=== PATIENT | male | born 1935 | race Caucasian/White ===

== ENCOUNTER 2019-09-27 03:01 | Inpatient (IN) | payer OTHER ==
[~2019-09-27] VITALS: Ht 177.8 cm; Wt 106.7 kg
[2019-09-27] VITALS (35 sets, daily range): BP systolic 93–197; BP diastolic 50–91
[~2019-09-27 03:01] MED LIST: ACETAMINOPHEN325 M1 PO; ALLOPURINOL 10100 M1 PO; ASPIRIN81 M2 PO; AZOR 5-40 MG T1 EACH PO; CALCITRIOL0.25 MCG PO; CARDIZEM CD240 MG PO; COLACE 100 MG100 MG PO; COZAAR 25 MG TA25 M1 PO; DILTIAZEM 24HR240 MG PO; ELIQUIS5 MG PO; FISH OIL 1,001000 M2 PO; FISH OIL 1,2001 EAC4 PO; ICAPS AREDS FO1 EACH PO; LORTAB 7.5/5001 TA3 PO; MULTAQ400 MG PO; NITROSTAT0.4 MG SUBLING; OCUVITE TABLET1 EAC1 PO; SIMVASTATIN40 MG PO; SOTALOL 120 MG120 M1 PO; SYNTHROID125 MCG PO; TOPROL XL50 MG PO; TUMS X-STR300 MG PO; VITAMIN D-32000 UNIT PO; VITAMIN D3400 UNIT PO; XARELTO20 MG PO
[2019-09-27 03:46] LABS: HEMATOCRIT 41.9 % (42.0-52.0); HEMOGLOBIN 14.2 gm/dL (14.0-18.0); MCH 32.1 pg (26.0-34.0); MCHC 33.8 g/dL (28.0-37.0); MCV 94.9 fL (80.0-100.0); PLATELET COUNT 247 thou/uL (150-400); RBC 4.41 mil/uL (4.50-6.00); WBC 6.1 thou/uL (4.0-11.0)
[2019-09-27 03:48] LABS: CALCIUM 9.2 mg/dL (8.5-10.1); CREATININE 1.2 mg/dL (0.7-1.3); POTASSIUM 4.2 mmol/L (3.5-5.1)
[2019-09-27 05:13] LABS: ABSOLUTE NEUTROPHILS 3.5 thou/uL (1.4-8.2); NUCLEATED RBCS 1 /100WBC; PLATELET ESTIMATE NORMAL
[2019-09-27 09:27] LABS: TSH 17.533 uIU/mL (0.358-3.740)
--- NOTE | 2019-09-27 13:49 | EKG ---
[facility] [place] [address] ELECTROCARDIOGRAM REPORT Name: JUSTEN STEINER Room #: 249-P ADM IN M.R.#: [id number] Admission: 09/27/19 Attend Phys: Luis Enrique Beasley MD Discharge: Date of : 37 Report #: [id number] THIS REPORT FOR: cc: Rene Kiser Theodore M. DO Couchonnal,Doroteo Cali MD ~ THIS REPORT FOR: //name// [facility] ED Test Date: 2019-09-27 Test Time: 03:21:08 Pat Name: JUSTEN STEINER Department: Room: 249 Gender: M Ham Passer: : 1935 Requested By: Osvaldo Rider Order Number: [id number] MD: Doroteo Walsh Measurements Intervals [place] Rate: 50 P: -2 NC: 171 QRS: -48 QRSD: 101 T: 36 QT: 473 QTc: 432 Interpretive Statements Sinus rhythm Left anterior fascicular block Abnormal R-wave progression, late transition Compared to ECG 08/12/2012 11:52:09 Electronically Signed On 09-27-2019 13:49:31 CDT by Doroteo Walsh [email or web address] <ELECTRONICALLY SIGNED> By: Doroteo Walsh MD 09/27/19 1349 0321 0321 Doroteo Walsh MD /EPI
[2019-09-28] VITALS (26 sets, daily range): BP systolic 93–158; BP diastolic 51–74
[2019-09-28 05:18] LABS: HEMATOCRIT 41.9 % (42.0-52.0); HEMOGLOBIN 14.2 gm/dL (14.0-18.0); MCH 32.2 pg (26.0-34.0); MCHC 33.9 g/dL (28.0-37.0); MCV 95.1 fL (80.0-100.0); RBC 4.4 mil/uL (4.50-6.00); RDW 14.5 % (10.5-14.5); WBC 7.3 thou/uL (4.0-11.0)
[2019-09-28 05:42] LABS: ALBUMIN 3.4 g/dL (3.4-5.0); CALCIUM 8.9 mg/dL (8.5-10.1); CREATININE 1.2 mg/dL (0.7-1.3); PHOSPHORUS 2.3 mg/dL (2.5-4.9); POTASSIUM 4.1 mmol/L (3.5-5.1)
[2019-09-28 12:30] LABS: PROTIME 10.2 Seconds (9.3-11.4)
== END 2019-09-28 16:03 | disposition short-term general hospital (02) | DRG 513 ==
LOC: ER 03:01 → ICU 05:04 → EROBS 05:04 → ICU 11:06
PROVIDERS: Emergency Medicine; Nurse Practitioner; Nurse Practitioner Family; Surgery; ADMIT Surgery; ATTEND Surgery
PROC: 2W3KX1Z Immobilization of Left Finger using Splint (ICD-10-PCS; principal; 2019-09-27)
PROC: 0RSX0ZZ Reposition Left Finger Phalangeal Joint, Open Approach (ICD-10-PCS; principal; 2019-09-27)
DX: S63.285A Dislocation of proximal interphalangeal joint of left ring finger, initial encounter (principal); G93.6 Cerebral edema; S06.309A Unspecified focal traumatic brain injury with loss of consciousness of unspecified duration, initial encounter; M87.9 Osteonecrosis, unspecified; G93.9 Disorder of brain, unspecified; E03.9 Hypothyroidism, unspecified; I16.0 Hypertensive urgency; G47.33 Obstructive sleep apnea (adult) (pediatric); R93.89 Abnormal findings on diagnostic imaging of other specified body structures; J45.909 Unspecified asthma, uncomplicated; I10 Essential (primary) hypertension; E78.5 Hyperlipidemia, unspecified; I48.91 Unspecified atrial fibrillation; W10.8XXA Fall (on) (from) other stairs and steps, initial encounter; Y93.89 Activity, other specified; Y92.89 Other specified places as the place of occurrence of the external cause; Y99.8 Other external cause status; Z87.891 Personal history of nicotine dependence; Z98.49 Cataract extraction status, unspecified eye; Z79.899 Other long term (current) drug therapy
CPT/HCPCS: 10078

== ENCOUNTER 2019-10-06 09:15 | Inpatient (IN) | payer OTHER ==
[~2019-10-06] VITALS: Ht 175.3 cm; Wt 108.4 kg
[2019-10-06] MEDS ORDERED: KEPPRA 500 MG500 MG PO (15:25)
[2019-10-06] MEDS ORDERED: ROBAXIN 750 MG750 MG PO (15:27)
[2019-10-06] MEDS ORDERED: MIRALAX17 GM PO (15:30)
[2019-10-06] MEDS ORDERED: PERCOCET 5-3251 EACH PO (15:30)
[2019-10-06] MEDS ORDERED: SENOKOT-S1 TA2 PO (15:33)
[2019-10-06] MEDS ORDERED: ALLOPURINOL 10100 M3 PO (15:36)
[2019-10-06] MEDS ORDERED: LIPITOR 20 MG T20 M1 PO (15:37)
[2019-10-06] MEDS ORDERED: VITAMIN D310 MC2 PO (15:40)
[2019-10-06] MEDS ORDERED: DILTIAZEM 24HR240 M1 PO (15:41)
[2019-10-06] MEDS ORDERED: FINASTERIDE5 MG PO (15:41)
[2019-10-06] MEDS ORDERED: FISH OIL 1,0001 EAC9 PO (15:42)
[2019-10-06] MEDS ORDERED: LEVO-T100 MCG PO (15:49)
[2019-10-06] MEDS ORDERED: COZAAR 25 MG TA25 M1 PO (15:50)
[2019-10-06] MEDS ORDERED: FLOMAX0.4 MG PO (15:51)
[2019-10-06] MEDS ORDERED: PRESERVISION A1 EACH PO (15:53)
[2019-10-06] MEDS ORDERED: HEPARIN 1,1000 UNIT/ SUBQ (15:54)
[2019-10-06 22:00] VITALS: BP 175/96
--- NOTE | 2019-10-07 03:11 | NUR ---
pt arrived to unit before change of shift. pt sitting in dining room eating his supper waiting for his room to be finished cleaning by housekeeping. transferred pt to w/c and into bed. pt alert and oriented x3-4, hard of hearing. pt cooperative. pt took hs meds with water tolerating well. pt incontinent of large amt urine. pt appears to be sleeping soundly with hourly rounding checks. bed alarm on and call light in reach. will continue to monitor.
[2019-10-07 05:45] LABS: HEMATOCRIT 33.9 % (42.0-52.0); HEMOGLOBIN 11.7 gm/dL (14.0-18.0); MCH 32.9 pg (26.0-34.0); MCHC 34.4 g/dL (28.0-37.0); MCV 95.6 fL (80.0-100.0); RBC 3.55 mil/uL (4.50-6.00); RDW 13.9 % (10.5-14.5); WBC 6.8 thou/uL (4.0-11.0)
[2019-10-07 06:12] LABS: CALCIUM 9.1 mg/dL (8.5-10.1); CREATININE 1.2 mg/dL (0.7-1.3); POTASSIUM 4.4 mmol/L (3.5-5.1); URIC ACID* 4.9 mg/dL (3.5-7.2)
[2019-10-07 06:29] LABS: CHOLESTEROL 102 mg/dL (<200); HDL CHOLESTEROL 42 mg/dL (>40); LDL CHOLESTEROL 44 mg/dL (<100); TC:HDL 2.4 Ratio (Not establshd); TRIGLYCERIDE 84 mg/dL (<150); VLDL 17 mg/dL (<40)
[2019-10-07 06:30] LABS: SERUM ASSESSMENT Clear
[2019-10-07 07:58] VITALS: BP 144/78
--- NOTE | 2019-10-07 09:33 | NUR ---
ASSUMED CARE AT 0700. PATIENT IS ALERT AND ORIENTED X3. PATIENT HAS RIGHT SIDE OF HEAD YAZMIN THAT ARE INTACT. PATIENT HAS LEFT SIDED WEAKNESS. PATIENT IS UP WITH ASSIST OF 1 STAFF WITH GAIT BELT TO [facility]. UP IN BED FOR BREAKFAST. FALL AND SAFETY PROTOCOLS IN PLACE. DENIES PAIN AT THIS TIME. WILL CONTINUE TO MONITER.
[2019-10-07 19:35] VITALS: BP 140/74
--- NOTE | 2019-10-08 02:33 | NUR ---
ASKED FOR HELP TO VOID AT 2129, APPARENTLY TOO LATE, INCONTINENT URINE CLEANED, MOISTURE BARRIER APPLIED TO RASHY RED BUTTOCK. VOIDED 400 CC WITH URINAL AND STAFF ASSIST AT 0. PATIENT PLEASANT AND COOPERATIVE AND ABLE TO COMMUNICATE EVEN AFTER REMOVING HIS HEARING AIDS. PAIN MED FOR HEADACHE APPRECIATED
--- NOTE | 2019-10-08 06:02 | NUR ---
STANDING AT EDGE OF BED USING URINAL FOR 300 CC WITH STANDBY ASSIST
--- NOTE | 2019-10-08 08:19 | HC ---
[facility] [place] [address] CONSULTATION Name: JUSTEN STEINER Room #: 506-1 ADM IN M.R.#: [id number] Admission: 10/06/19 Attend Phys: Nick Stock MD Discharge: Date of : 37 Report #: [id number] THIS REPORT FOR: cc: Rene Kiser,Ian Palacios MD ~ CC: Nick Kiser DATE OF SERVICE: 10/07/2019 CARDIOLOGY CONSULTATION INDICATION: History of paroxysmal atrial fibrillation. HISTORY OF PRESENT ILLNESS: This is an 84-year-old gentleman with a history of paroxysmal atrial fibrillation, nonobstructive CAD, hypertension and hypercholesterolemia, who is transferred from [facility] for inpatient rehabilitation. Recently, he sustained a fall and found to have a mass in his right hemisphere. He underwent a right parietal craniotomy for glioblastoma on 09/29 at [facility]. His postop course was uncomplicated. We are asked to follow up regarding his history of paroxysmal atrial fibrillation and coronary artery disease. He denies any chest pains or shortness of breath. PAST MEDICAL HISTORY: CAD with nonobstructive disease. History of atrial flutter ablation in 2014. More recently with paroxysmal atrial fibrillation, maintained on Cardizem and anticoagulation therapy. History of hypertension, hypercholesterolemia, and sleep apnea. ALLERGIES: None. MEDICATIONS: Cardiac medications include Cardizem 240 daily, losartan, simvastatin. SOCIAL HISTORY: Negative for tobacco use. FAMILY HISTORY: Noncontributory. REVIEW OF SYSTEMS: The pertinent positives and negatives described in the HPI. PHYSICAL EXAMINATION: VITAL SIGNS: Blood pressure is 144/78, heart rate is 60 beats per minute. GENERAL APPEARANCE: This is an elderly appearing male, in no acute distress. HEENT: Normocephalic, atraumatic, oral mucosa moist. NECK: Supple. LUNGS: Clear to auscultation. [facility] [address] [place] [address] CONSULTATION Name: JUSTEN STEINER Room #: 506-1 ADM IN [facility].#: [id number] Admission: 10/06/19 Attend Phys: Nick Stock MD Discharge: Date of : 37 Report #: [id number] CARDIAC: Regular rate and rhythm. S1, S2 positive. ABDOMEN: Soft, nontender. EXTREMITIES: Trace edema, no cyanosis. LABORATORY VALUES: Hemoglobin is 11.7. Sodium is 137, creatinine is 1.2. ASSESSMENT AND PLAN: 1. Glioblastoma, status post right parietal craniotomy, continue with PT and OT. Supportive care. 2. Coronary artery disease/nonobstructive, stable with no complaints of angina or dyspnea. 3. Paroxysmal atrial fibrillation, continue on Cardizem. Presently on heparin. Resume anticoagulation when able to. 4. Hypercholesterolemia, continue statin therapy. <ELECTRONICALLY SIGNED> By: Ian Olivas MD 10/08/19 0819 1042 Ivan Olivas MD /santy
[2019-10-08 10:05] VITALS: BP 109/69
--- NOTE | 2019-10-08 11:38 | NUR ---
ASSUMED CARE AT 0700. PATIENT IS ALERT AND ORIENTED X3. PATIENT MUSTAFA'S, FILM PROCESSOR ARE EQUAL. LUNGS ARE CLEAR AND DEMINISHED. ABD IS SOFT WITH BSX4. VOIDING DOREEN COLORED URINE. PATIENTS BOTTOM IS RED FROM URINE INCONTINENCE. DR. LLOYD HERE. PATIENT IS TO BE TURNED Q2 HOURS AND BARRIER CREAM APPLIED. PATIENT IS TO BE KEPT CLEAN AND DRY. FALL AND SAFETY PROTOCOLS IN PLACE. C/O PAIN IN HIS BOTTOM. TURNED AND BARRIER CREAM APPLIED. UP WITH ASSIST OF 1 STAFF AND GAIT BELT AND WALKER. HEAD SUTURES ARE DRY AND INTACT. WILL CONTINUE TO MONITER.
[2019-10-08 21:50] VITALS: BP 133/96
--- NOTE | 2019-10-09 00:34 | NUR ---
PT ALERT AND ORIENTED X 3. SITS ON SIDE OF BED TO USE URINAL. INCONT OF URINE AT TIMES. INCISION TO HEAD C/D/I WITH SUTURES. BED ALARM ON FOR SAFETY. PT APPEARS TO BE SLEEPING ON HOURLY ROUNDS.
--- NOTE | 2019-10-09 08:21 | EKG ---
[facility] [place] [address] ELECTROCARDIOGRAM REPORT Name: JUSTEN STEINER Room #: [facility]- ADM IN M.R.#: [id number] Admission: 10/06/19 Attend Phys: Nick Stock MD Discharge: Date of : 37 Report #: [id number] THIS REPORT FOR: cc: Rene Kiser Theodore M. DO Lundgren, Craig H. MD [facility] ~ THIS REPORT FOR: //name// [facility] Test Date: 2019-10-07 Test Time: 12:48:40 Pat Name: JUSTEN STEINER Department: Room: [facility] Gender: M Balancing Machine Operator: Maksim PETER : 1935 Requested By: Ian Olivas Order Number: [id number] MD: Jaylen Pete Measurements Intervals [place] Rate: 47 P: 12 SD: 170 QRS: -41 QRSD: 100 T: 57 QT: 444 QTc: 393 Interpretive Statements Sinus bradycardia Left anterior fascicular block Compared to ECG 09/27/2019 03:21:08 No significant change was found Electronically Signed On 10-09-2019 8:21:30 CDT by Jaylen Pete [email or web address] <ELECTRONICALLY SIGNED> By: Jaylen Pete MD, [facility] 10/09/19 0821 1248 1248 Jaylen Pete MD, [facility] /EPI
--- NOTE | 2019-10-09 13:10 | NUR ---
chart review. cm cont to wear own face mask and face shield during visit at bedside. intro to cm, weekly team meeting and dcp ie home health. pt preferrs going by susan, he is able to make his needs know. he is [place] with bilat hearing aids in. noted stable in head open to air " 37 of those. live home with , and daughter lives with us, she is a pharmacist at [employer]. 1 step into home, 12 step with handrail to basement. independent prior to hospital and prior to ku. no equip, manage own medication. drive vehicle. 6 kids all live 1 mile from us if we need anything"/susan. will cont following as needed for dc needs.
--- NOTE | 2019-10-09 13:13 | NUR ---
Nutrition: RD received consult per rehab admission orders. Pt admit S/P craniotomy with tumor resection of right parietal mass/glioblastoma. Good oral [id number]% meals carb control diet. BG is controlled and SSI order has D/C'ed. A1C pending. PMH: HLD, DM2, HTN, NARDA. On vitamin D supplementation for deficiency. Recent weight of 193# error. Prior weights 244-247# and pt reports no recent changes. Explained meal ordering if desired. pt voices no questions for RD at present. Consider low nutrition risk at this time.
[2019-10-09 13:33] VITALS: BP 126/51
--- NOTE | 2019-10-09 18:59 | NUR ---
PT A&OX4. PT HAD NO C/O PAIN OR ISSUES TODAY. TOLERATED PT/OT WELL.
[2019-10-09 20:15] VITALS: BP 159/78
--- NOTE | 2019-10-10 03:55 | NUR ---
USING URINAL ONCE STANDING AT BEDSIDE, TWICE WHILE IN BED, AFTER INITIALY BEING INCONTINENT IN BRIEF. DECLINED SENNA DUE TO RECENT BM. TURNING SELF TO RIGHT SIDE AT THIS TIME.
[2019-10-10 11:50] VITALS: BP 129/62
--- NOTE | 2019-10-10 13:05 | NUR ---
team recommendation: he has follow up neuro ku on at 1130. family will need training for car transfer to take him to follow up appointment. dc with [facility]h pt, ot, st, nurse. he will needs assist with bills and pills. 24hr assistance and supervision at home. no driving and follow up outp kana 6 week post dc [phone].
--- NOTE | 2019-10-10 15:25 | NUR ---
ASSUMED CARE AT 0700 THIS MORNING. PT. A&OX4. HE IS A BIT FORGETFUL AND SAXMAN. HE HAS SOME LEFT ARM WEAKNESS. HE IS UP WITH ASSIST OF 1. HE HAS BEEN PLEASANT AND COOPERATIVE WITH ALL STAFF. HE TOOK HIS MEDICATIONS WITHOUT PROBLEMS NOTED.
[2019-10-10 20:00] VITALS: BP 123/68
--- NOTE | 2019-10-11 01:39 | NUR ---
PT ALERT AND ORIENTED X 4. PT PLATINUM, WEARS BILATERAL HEARING AIDS. SPEAK LOUDLY TO PT AND SOMETIMES WRITE THINGS DOWN IF HAVING TOO MUCH DIFFICULTY UNDERSTANDING CONVERSATION. HEAD INCISION C/D/I WITH SUTURES. PT C/O HEADACHE AT START OF SHIFT. TYLENOL GIVEN ORDERED. MELATONIN ALSO GIVEN AT HS PER PT REQUEST FOR SLEEP. PT INCONT OF URINE IN LARGE AMTS. BUTTOCKS RED, BARRIER CREAM APPLIED PRN. BED ALARM ON FOR SAFETY. PT APPEARS TO BE SLEEPING ON HOURLY ROUNDS.
[2019-10-11 08:00] VITALS: BP 114/65
--- NOTE | 2019-10-11 10:57 | NUR ---
ASSUMED CARE AT 0700. PATIENT IS ALERT AND ORIENTED X4. PATIENT IS VERY [place] AND USES BILATERAL HEARING AIDS. WHEN COMMUNICATING WITH PATIENT THIS PROPOSAL DEVELOPMENT MANAGER HAS TO SPEAK LOUDER TO HELP PATIENT UNDERSTAND WHAT IS BEING SAID. LUNGS ARE CLEAR AND DEMINISHED. ABD IS SOFT WITH BSX4. PATIENT HAD BM THIS A.M. PATIENT IS VOIDING ABMER COLORED URINE PER URINAL AND UP TO THE BATHROOM OR BSC. FALL AND SAFETY PROTOCOLS IN PLACE. DENIES PAIN AT THIS TIME. CONTINUES TO PROGRESS TOWARDS D/C GOALS. WILL CONTINUE TO MONITER.
[2019-10-11 20:00] VITALS: BP 137/75
--- NOTE | 2019-10-12 02:04 | NUR ---
PATIENT HAS BEEN CALM AND COOPERATIVE THIS EVENING. PATIENT HAD A HEADACHE AT BEGINNING SHIFT AND RECEIVED TYLENOL 650MG PO WITH RELIEF. PATIENT TAKES HIS MEDS WHOLE WITH WATER. PATIENT HAS 2 HEARING AIDS AND IS STILL BLACKFEET. PATIENT IS TO D/C TO HOME ON THURSDAY 10/12. PATIENT HAS RASH ON BUTTOCKS AND ANTIFUNGAL CREAM APPLIED TO AREA PRN. PATIENT USES URINAL TO VOID. HEPARIN 5000U ADMINISTERED TO RIGHT UPPER ABDOMEN. PATIENT IS EAGER TO START ELIQUIS SO HE DOESN'T HAVE TO HAVE THE INJECTIONS AGAIN. PATIENT TOOK MEDS WHOLE WITH WATER. PATIENT IS UP WITH ASSIST X 1 TO [facility]. PATIENT APPEARS TO BE SLEEPING AT THIS TIME. BED IN LOW POSTION AND BED ALARM ON. CONTINUING TO MONITOR.
--- NOTE | 2019-10-12 06:09 | NUR ---
PATIENT HAS SLEPT OFF AND ON AND WATCHED TV THRU NIGHT. HE DENIES PAIN THIS MORNING. HE IS A/0 X 3. HE DID ASK WHAT THE DATE AND DAY IS TODAY. HIS SUTURES AT MIDLINE OF POSTERIOR HEAD INTACT WITHOUT SIGNS OF INFECTION. NO DRAINAGE. PATIENT VOIDED PER URINAL AND EMPTIED SOME THIS MORNING OF 400CC. PATIENT PLEASANT AND COOPERATIVE. PATIENT HOPING TO SWITCH TO ELIQUIS FROM HEPARIN PARVEEN. HE STATES HE'S TIRED OF INJECTIONS. CONTINUING TO MONITOR.
[2019-10-12 08:10] VITALS: BP 121/64
--- NOTE | 2019-10-12 10:51 | NUR ---
ASSUMED CARE AT 0700. PATIENT IS ALERT AND ORIENTED X 4 BUT IS VERY [place]. PATIENT MUSTAFA. DEPUTY SHERIFF CUSTODY ARE EQUAL. LUNGS ARE CLEAR AND DEMINISHED. ABD IS SOFT WITH BSX4. UP TO THE BATHROOM TO VOID AND HAVE BM TODAY. UP IN THE W/C FOR MEALS. PATIENT BOTTOM RED. ANTIFUNGAL APPLIED. BREWERY REPRESENTATIVE NOTIFIED. PLAN FOR SCRIPT FOR NYSTATIN POWDER BID. FALL AND SAFETY PROTOCOLS IN PLACE. DENIES PAIN AT THIS TIME. CONTINUES TO PROGRESS TOWARDS D/C GOALS. WILL CONTINUE TO MONITER.
--- NOTE | 2019-10-12 16:25 | NUR ---
PATIENT YAZMIN IN HIS HEAD ARE DRY AND INTACT. NO DRAINAGE NOTED. WILL CONTINUE TO MONITER.
[2019-10-12 18:39] LABS: GLYCOHEMOGLOBIN (HGB A1C) 5.8
[2019-10-12 22:18] VITALS: BP 118/64
--- NOTE | 2019-10-13 01:57 | NUR ---
NYSTATIN POWDER TO BUTTOCKS, TURNED TO SIDE, USING URINAL WITH MINIMAL ASSIST APPROX 200 CC AT A TIME. NO HEADACHE TONIGHT, HARD OF HEARING SINCE AIDS REMOVED
[2019-10-13 05:05] LABS: BASOPHILS 0.9 % (0.0-2.0); EOSINOPHILS 1.8 % (0.0-3.0); HEMATOCRIT 30.2 % (42.0-52.0); HEMOGLOBIN 10.8 gm/dL (14.0-18.0); LYMPHOCYTES 24.3 % (24.0-44.0); MCH 34.4 pg (26.0-34.0); MCHC 35.8 g/dL (28.0-37.0); MCV 96.2 fL (80.0-100.0); PLATELET COUNT 288 thou/uL (150-400); RBC 3.14 mil/uL (4.50-6.00); WBC 4.9 thou/uL (4.0-11.0)
[2019-10-13 05:35] LABS: CALCIUM 9.5 mg/dL (8.5-10.1); CREATININE 1.3 mg/dL (0.7-1.3); MAGNESIUM 2.1 mg/dL (1.8-2.4); POTASSIUM 4.3 mmol/L (3.5-5.1)
[2019-10-13 08:05] VITALS: BP 116/71
--- NOTE | 2019-10-13 14:49 | NUR ---
ASSUMED CARES AT 0700. PT ALERT AND ORIENTED*4 BUT FORGETFUL. IMPULSIVE. VITALS REMAIN STABLE. PT C/O COUGH, STATED THAT WHENEVER HE COUGHS HE GETS A HEADACHE AROUND THE INCISION. INCISION REMAINS DRY AND INTACT, YAZMIN IN PLACE. CONTINUES TO HAVE REDNESS ON HIS SACRAL AREA, NYSTATIN POWDER APPLIED SCHEDULED. PT PARTICIPATED WELL IN ALL THE THERAPIES. Q1H VISUAL CHECKS. CALL LIGHT WITHIN REACH. FALL PRECAUTIONS IN PLACE
--- NOTE | 2019-10-13 15:34 | NUR ---
edwin up at [facility] nursing station and gillian from called and wanted to know if medicare was going to pay for his follow up appointment on and new oncology at on . cm let her know did not have answer for that, she would have to check with on that. " ok thank you"/gillian.
[2019-10-14 00:06] LABS: GLYCOHEMOGLOBIN (HGB A1C) 5.6 % (4.8-5.6)
--- NOTE | 2019-10-14 01:07 | NUR ---
TURNING SELF TO SIDE AND ABLE TO USE URINAL WITHOUT ASSIST TONIGHT. NYSTATIN POWDER TO PINK AREA ON BUTTOCKS. PLANNING ON VISITING DOCTOR ON THE
[2019-10-14 07:45] VITALS: BP 109/54
--- NOTE | 2019-10-14 13:28 | NUR ---
ASSUMED CARES AT 0700. PT ORIENTED*3, UNABLE TO RECALL DATE/DAY/TIME. PT ASKED STAFF THIS MORNING IF TODAY WAS WEDNESDAY AND THOUGHT THAT BREAKFAST WAS DINNER. DENIES PAIN AT THIS TIME. VITALS REMAIN STABLE. PT IMPULSIVE *1, STANDING ON THE SIDE OF BED TO USE THE URINAL. UP WITH 1 MIN ASSIST, GB AND WALKER. SACRAL AREA CLEANED AND NYSTATIN POWDER APPLIED. PT UP WITH 1 MIN ASSIST, GB AND WALKER. Q1H VISUAL CHECKS. CALL LIGHT WITHIN REACH. FALL PRECAUTIONS IN PLACE
[2019-10-14 19:40] VITALS: BP 111/54
--- NOTE | 2019-10-15 01:20 | NUR ---
PT ALERT AND ORIENTED X 4. STANDS AT SIDE OF BED TO USE URINAL WITH ASSIST X 1. HEAD INCISION C/D/I WITH SUTURES. PT DENIES PAIN OR DISCOMFORT. BED ALARM ON FOR SAFETY. PT APPEARS TO BE SLEEPING ON HOURLY ROUNDS.
[2019-10-15 07:10] VITALS: BP 139/82
--- NOTE | 2019-10-15 13:47 | NUR ---
ASSUMED CARES AT 0700. PT ORIENTED TO PERSON AND PLACE, FORGETFUL AND CONFUSED AT TIMES. C/O HEADACHE. PAIN MEDICATION ADMINISTERED NEEDED. SACRAL AREA CLEANED AND NYSTATIN POWDER APPLIED PER ORDER. PT UP WITH 1 SBA, GB AND WALKER AND TOLERATED WELL. Q1H VISUAL CHECKS. CALL LIGHT WITHIN REACH. FALL PRECAUTIONS IN PLACE
[2019-10-15 19:40] VITALS: BP 123/79
--- NOTE | 2019-10-15 21:11 | HC ---
[facility] [place] [address] CONSULTATION Name: JUSTEN STEINER Room #: 506-1 ADM IN M.R.#: [id number] Admission: 10/06/19 Attend Phys: Nick Stock MD Discharge: Date of : 37 Report #: [id number] THIS REPORT FOR: cc: Rene Kiser,Gene Benjamin PhD ~ CC: Nick Kiser DATE OF SERVICE: 10/14/2019 NEUROBEHAVIORAL STATUS EXAM ATTENDING PHYSICIAN: Nick Stock M.D. RELAY CHECKER: Gene Chase, Ph.D. CLINICAL PRESENTATION: The patient is an 84-year-old male admitted to the rehabilitation unit for a comprehensive inpatient treatment program. He was transferred from the [facility]. The patient was originally at [facility] on 09/27/19 after having a fall and found to have a mass in his right hemisphere and was transferred to [facility] where he underwent a right parietal craniotomy for glioblastoma on 09/30/2019. His diagnostic assessment on the rehab unit is glioblastoma, status post right parietal craniotomy, left-sided hemisensory deficit with some left visual deficits, functional mobility and ADL deficits with cognitive concerns, prior history of bradycardia, thought to be Valsalva related while at , hypertension, hypothyroidism, gout, diabetes mellitus type 2, obstructive sleep apnea, hyperlipidemia and atrial fibrillation. A complete description of his medical condition, history and medication can be found in his medical record. Neuropsychological consultation was requested to provide assistance in the assessment of cognitive and emotional status and provide recommendations and services. Prior to this most recent admission, the patient was living with his and daughter in their home. He has 6 children and 6 grandchildren. The patient is a college graduate. 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 The patient does not report a prior history of treatment for depression or anxiety. However, he does indicate a high level of alcohol use at approximately 6 beers a day. TECHNIQUES UTILIZED: Clinical interview, review of medical records, staff consultation and behavioral observation, mini mental status exam 2 standard version, clock drawing and brief verbal fluency assessment. [address] [address] CONSULTATION Name: JUSTEN STEINER Room #: 506-1 ADM IN M.R.#: [id number] Admission: 10/06/19 Attend Phys: Nick Stock MD Discharge: Date of : 37 Report #: [id number] EXAMINATION FINDINGS: The patient was alert and cooperative with the assessment. He described having a fall down his stairs as the reason for his hospitalization. The patient does not present with an aphasia or report auditory or visual hallucinations, anxiety or decreased appetite. He describes symptoms to include difficulty with memory, sleep disturbance, and feelings of depression. Additionally, prior to his hospitalization, he reported that he would run into things on his left side. Performance on the MMSE 2 brief version is extremely low with a raw score of 11/16. He was 3/3 for initial registration, 3/5 for orientation to time, 5/[address] and 0/3 for immediate recall of 3 items after a brief time delay and distraction. Performance on the MMSE 2 standard version improved to a raw score of 24/30, which is a T score of 36 and percentile rank of 8. He was 5/5 for serial 7's, 2/2 for naming, 1/1 for repetition, 3/3 for auditory comprehension. He could read and follow single command and write a sentence. The patient was unable to copy a simple geometric design. He also was unable to draw a clock and set the hands at designated time. Severe deficits in visual spatial construction are noted and likely related to the right parietal craniotomy and glioblastoma. Visual spatial disorganization will likely interfere with his ability to manage independent tasks. Brief assessment of letter fluency was average at the 54th percentile and category fluency at the 21st percentile. Average letter fluency and category fluency suggest fairly well maintained verbal fluency with greater deficits in visual spatial construction and organization. Possible alcohol use disorder is suggested. 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 Depressive Disorder RECOMMENDATIONS: The patient will need to discontinue driving and will require assistance in the management of medication, finances and nutrition. Visual spatial disorganization and deficits in perceptual reasoning will require environmental support. Followup neuropsych assessment may be of benefit to clarify the severity of cognitive disorder. At this time, assistance will be needed for medication and finances along with safety concerns regarding possible impulsivity. Further [facility] [address] [place] [address] CONSULTATION Name: JUSTEN STEINER Room #: 506-1 ADM IN M.R.#: [id number] Admission: 10/06/19 Attend Phys: Nick Stock MD Discharge: Date of : 39 Report #: [id number] assment of possible alcohol use disorder is indicated. Thank you very much for allowing me to provide the consultation on this patient. <ELECTRONICALLY SIGNED> By: Gene Chase, PhD 10/15/19 2111 1538 1610 Gene Chase, PhD /nt
--- NOTE | 2019-10-15 23:50 | NUR ---
ASSUMED PT CARE AT 1900. PT IS ORIENTED X3, BUT QUITE FORGETFUL. VERY [place] WHICH MAKES IT DIFFICULT TO ASSESS TRUE ORIENTATION STATUS. USING URINAL, WELL EPISODE OF INCONTINENCE BEFORE BED. PM MEDS GIVEN, PT REQUESTING A SLEEP AID. UPSET THAT HE STILL HAD TO HAVE HEPARIN INJECTION. SUTURES ON HEAD D/C/I. A LITTLE FUSSY WITH STAFF TONIGHT. ANXIOUS TO GOT TO APPT IN AM. WILL CONTINUE TO MONITOR THORUGHOUT THE SHIFT.
[2019-10-16 09:00] VITALS: BP 127/85
--- NOTE | 2019-10-16 11:03 | H ---
[facility] [place] [address] HISTORY AND PHYSICAL Name: JUSTEN STEINER Room #: 506-1 ADM IN M.R.#: [id number] Admission: 10/06/19 Attend Phys: Nick Stock MD Discharge: Date of : 37 Report #: [id number] THIS REPORT FOR: cc: Rene Kiser,Rene Cantu,Nick Lara MD ~ CC: Nick Kiser DATE OF SERVICE: 10/06/2019 HISTORY AND PHYSICAL AND POST-ADMISSION PHYSICIAN EVALUATION HISTORY OF PRESENT ILLNESS: The patient is an 84-year-old male who was admitted to the inpatient rehabilitation unit at [facility] from [facility]. He originally was seen here at [facility] on 09/27/2019 after sustaining a fall and was found to have a mass in his right hemisphere and was transferred to [facility] on 09/28/2019 where he then underwent a subsequent right parietal craniotomy for glioblastoma on 09/30/2019. He did not have any complications postoperatively. He had one episode when he had some bradycardia, but was thought to be vasovagal induced with a bowel movement. He has left-sided weakness and left hemisensory deficits and has now been readmitted to [facility] at this time to the acute inpatient rehab arias. PAST MEDICAL HISTORY: Prior medical history includes gout, obstructive sleep apnea, pseudophakia of the right eye, atrial fibrillation, hyperlipidemia, hypothyroidism, hypertension, diabetes mellitus type 2, cataracts, bradycardia, and macular degeneration. MEDICATIONS: Please see the full medication listing. ALLERGIES: No known drug allergies. SOCIAL HISTORY: The patient lives in a house with and daughter. is retired. Daughter works. There are 2-3 steps in and then there is 1 to 2 flights inside the home. Apparently, there are 2-3 stairs to the walk-in basement. The bedroom and bathroom are on the basement level with a walk-in shower. He has begun using the quad cane over the past month. REVIEW OF SYSTEMS: No current complaints of chest pain, shortness of breath or abdominal discomfort. PHYSICAL EXAMINATION: GENERAL: The patient was examined on 10/06/2019. He was alert, pleasant, sitting up at the dining room table. VITAL SIGNS: Temperature 38.1, pulse was 115, respirations 16, blood pressure [facility] [address] [place] [address] HISTORY AND PHYSICAL Name: JUSTEN STEINER Room #: 506-1 [facility] IN .R.#: [id number] Admission: 10/06/19 Attend Phys: Nick Stock MD Discharge: Date of : 37 Report #: [id number] 144/79. He was alert, pleasant. HEENT: Reveals the incision over his mid scalp with the alexander in place. He has an abrasion to his forehead. HEENT: Otherwise appeared benign. CHEST: Sounded clear to auscultation. CARDIOVASCULAR: Regular rate and rhythm. ABDOMEN: Bowel sounds positive, nontender. GENITOURINARY AND RECTAL: Deferred. NEUROLOGIC: EOMs appeared to be full. No nystagmus. I detect some decreased left lower quadrantanopia. Sensory examination was somewhat difficult to assess as he has a hard time attending but appears to be decreased left hemisensory. He also has some decreased coordination and decreased spontaneous use of that upper and lower extremity. Strength is probably a grade 4-/5. No obvious focal weakness of the right upper or right lower extremity. He is needing assistance as far as basic functional mobility skills and has been mod assist coming to stand. ASSESSMENT: An 84-year-old white male with the following problem list: 1. Glioblastoma, status post right parietal craniotomy, 09/30/2019. 2. Left-sided hemisensory deficits with some apparent left visual deficits. 3. Functional mobility, ADL deficits with cognitive concerns. 4. 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 5. Hypertension. 6. Hypothyroidism. 7. Gout. 8. Diabetes mellitus type 2. 9. Obstructive sleep apnea. 10. Hyperlipidemia. 11. Atrial fibrillation. PLAN: The patient has been admitted for acute in-hospital inpatient rehabilitation. From a postadmission physician evaluation, there are no relevant changes since the preadmission screening. Please see the above review of prior and current medical and functional conditions and comorbidities. Please see the patient's previous and current functional status. As far as risk of complications, he has multiple medical comorbidities as noted above. Initial plan of care involves the interdisciplinary acute inpatient rehabilitation program. Measurable functional goals would be for him to become modified independent with transfers, mobility, ADLs improve as far as cognition, so that he can hopefully return back to his prior living situation. Prognosis is reasonably good with estimated length of stay probably at least 10-14 days and likely longer in order to reach the functional level he will need to safely [facility] [address] [place] [address] HISTORY AND PHYSICAL Name: JUSTEN STEINER Room #: 506-1 ADM IN M.R.#: [id number] Admission: 10/06/19 Attend Phys: Nick Stock MD Discharge: Date of : 37 Report #: [id number] return back home. Potential barriers would include his multiple medical comorbidities and decreased functional status. <ELECTRONICALLY SIGNED> By: Nick Stock MD 10/16/19 1103 [id number] 1150 Nick Stock MD /nt
--- NOTE | 2019-10-16 11:51 | NUR ---
Nutrition followup: pt continues on rehab unit S/P tumor resection of right parietal mass/glioblastoma. Unable to s/w pt, off unit for a dr appt at . Intake records show pt continues to eat very well, 100% of meals. Labs/meds reviewed. BG well controlled. 10/14 BM. Some weight variations-follow trends.
--- NOTE | 2019-10-16 18:06 | NUR ---
PT ASSESSED AT START OF SHIFT. WENT TO SEE NEUROSURGEON THIS AM W/ TRANSPORTING. SCALP SUTURES REMOVED AT VISIT. PLAN FOR CT SCAN OUT-PT ON 10/19 AND THEN SURGEON WILL DECIDE ABOUT RESTARTING ELEQUIS. PT DOING WELL W/ THERAPIES. EATING AND DRINKING. CONTNENT OF B&B.
[2019-10-16 20:49] VITALS: BP 121/73
--- NOTE | 2019-10-17 03:38 | NUR ---
ASSUMED PT CARE AT 1900.PT OBSERVED LYING ON HIS BED WATCHING TV AT SHIFT CHANGE.PT METLAKATLA.WOUND ON HIS HEAD C/D/I DOOR TO DOOR SELLING DISTRIBUTOR.NO BM NOTED SO FAR.PT STILL WORRIED ABOUT RECEIVING HEPARIN SHOT,WANTS TO GET BACK TO TAKING PILLS.URINAL AT BEDSIDE.NYSTATIN POWDER ADMINISTERED.PT SLEEPING ON HIS BED AT THIS TIME.FALL PRECAUTIONS IN PLACE,CALL LIGHT WITHIN REACH.
[2019-10-17 09:10] VITALS: BP 109/69
--- NOTE | 2019-10-17 13:43 | NUR ---
team meeting, recommendation: dc 21st ( pt, ot, st, and nursing). outpt neuro physch [phone]. family to assist with pills and bill. no driving.
--- NOTE | 2019-10-17 14:07 | NUR ---
ASSUMED CARES AT 0700. PT AWAKE, ALERT AND ORIENTED*4 BUT FORGEFUL. DENIES PAIN AT THIS TIME. VITALS REMAIN STABLE. HEAD INCISION REMAINS INTACT, NO DRAINAGE NOTED, INCISION HEALING APPROPRIATELY. SACRAL AREA CLEANED AND NYSTATIN POWDER ADMINISTERED. PT UP WITH 1 MIN-SBA GB AND WALKER AND TOLERATED WELL. Q1H VISUAL CHECKS. CALL LIGHT WITHIN REACH. FALL PRECAUTIONS IN PLACE
[2019-10-17 19:28] VITALS: BP 124/59
--- NOTE | 2019-10-18 02:41 | NUR ---
UP TO TOILET AT 2200 FOR BM AND VOID WITH GAIT BELT, WALKER, AND STANDBY ASSIST, TURNING SELF AND USING URINAL ANOTHER TIME. BED ALARM ON SINCE HE STOOD TO VOID USING URINAL EARLY IN SHIFT FORGETTING TO CALL FOR ASSIST.
[2019-10-18 07:08] VITALS: BP 118/65
--- NOTE | 2019-10-18 13:47 | NUR ---
senior elier harkins left in room with phil. beth whaley will deliver fww day of dc , spoke with and she will be here around 1250 in order to be leaving by 1300 so he can make it to his appointment at at 1430. aydee guerra.
[2019-10-18 14:09] VITALS: BP 118/65
--- NOTE | 2019-10-18 14:15 | NUR ---
ASSUMED CARES AT 0700. PT AWAKE, ALERT AND ORIENTED*3, UNABLE TO RECALL TIME/DAY CORRECTLY. DENIES PAIN AT THIS TIME. VITALS REMAIN STABLE. INCISION ON HIS HEAD REMAIN DRY AND INTACT, NO DRAINAGE OR REDNESS NOTED. MILD BLE EDEMA, EXTREMITIES ELEVATED. PT PARTICIPATED WELL IN ALL THERAPIES AND PROGRESSES TOWARDS DC GOALS. Q1H VISUAL CHECKS. CALL LIGHT WITHIN REACH. FALL PRECAUTIONS IN PLACE
--- NOTE | 2019-10-18 15:08 | NUR ---
FAXED REFERRAL TO [facility] SPOKE WITH MARKUS IN ADM SHE RECEIVED REFERRAL AND WILL ACCEPT ANTICIPATE DC 10/19.
[2019-10-18 19:18] VITALS: BP 109/68
--- NOTE | 2019-10-19 02:25 | NUR ---
UP TO BATHROOM WITH GAIT BELT, WALKER, AND STANDBY ASSIST AND HAS STOOD AT EDGE OF BED TO USE URINAL FOR 300 CC YELLOW URINE. PLEASANT AND LOOKING FORWARD TO LEAVING EARLY WEDNESDAY TO MAKE IT TO A 2:30 CT EXAM. FROM THERE HE PRESUMES HE WILL WORK WITH AN ONCOLOGIST FOR ANY F/U CHEMO. PLEASANT AND EASIER TO COMMUNICATE WITH WHEN HE IS WEARING HIS HEARING AIDS
[2019-10-19 08:00] VITALS: BP 116/70
--- NOTE | 2019-10-19 18:05 | NUR ---
ASSESSMENT CHARTED - MEDS PER APR. NO CO'S OF PAIN OR NAUSEA. NEELAM DIET AND FLUIDS. SEEN BY PHYS AND OCC THERAPY TODAY. NO CO'S AT THE PRESENT TIME. WORKING TOWARD GOALS.
[2019-10-19 20:00] VITALS: BP 107/64
--- NOTE | 2019-10-19 23:43 | NUR ---
PT ALERT AND ORIENTED X 4. UP TO RECLINER FOR A WHILE. STATED HE CAN'T SLEEP TONIGHT. RETURNED TO BED WITH ASSIST X 1. MELATONIN GIVEN AT HS. BED ALARM ON FOR SAFETY. PT CHECKED ON HOURLY ROUNDS.
[2019-10-20 05:32] LABS: HEMATOCRIT 33.2 % (42.0-52.0); HEMOGLOBIN 11.4 gm/dL (14.0-18.0); MCH 32.7 pg (26.0-34.0); MCHC 34.2 g/dL (28.0-37.0); MCV 95.7 fL (80.0-100.0); PLATELET COUNT 235 thou/uL (150-400); RBC 3.47 mil/uL (4.50-6.00); RDW 13.7 % (10.5-14.5); WBC 3.5 thou/uL (4.0-11.0)
[2019-10-20 05:45] LABS: CALCIUM 8.9 mg/dL (8.5-10.1); CREATININE 1.1 mg/dL (0.7-1.3); POTASSIUM 4.1 mmol/L (3.5-5.1)
[2019-10-20 07:07] VITALS: BP 135/75
[2019-10-20 08:40] LABS: ABSOLUTE NEUTROPHILS 1.7 thou/uL (1.4-8.2); ANISOCYTOSIS SLIGHT
[2019-10-20] MEDS ORDERED: DILTIAZEM 24HR180 M1 PO (08:57)
--- NOTE | 2019-10-20 09:23 | PLAN ---
[facility] [place] [address] REHAB UNIT PLAN OF CARE Name: JUSTEN STEINER Room #: 506-1 ADM IN M.R.#: [id number] Admission: 10/06/19 Attend Phys: Nick Stock MD Discharge: Date of : 37 Report #: [id number] THIS REPORT FOR: //name// CC: Nick Thorntonronnie Kiser DATE OF SERVICE: 10/09/2019 SUBJECTIVE: The patient was seen back today in followup. He is in no distress. Last recorded temperature 97.4, pulse 51, respirations 14, blood pressure 133/96. He is alert. Scalp incision appears to be intact. Facies appeared symmetric. No calf swelling. Transfers are mod assist with gait min assist 80 feet front-wheeled walker. Lower body dressing is max assist. Speech therapy is also following with him with moderate comprehensive deficits, moderate cognitive deficits, moderate to severe memory deficits. ASSESSMENT: 1. Glioblastoma, status post right parietal craniotomy. 2. Left-sided hemisensory deficits with some apparent left visual field deficits. 3. Functional mobility, ADLs and cognitive concerns. 4. 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 5. Hypertension. 6. Hypothyroidism. 7. Gout. 8. Diabetes mellitus type 2. 9. Obstructive sleep apnea. 10. Hyperlipidemia. 11. Atrial fibrillation. PLAN: The overall plan of care is based on the preadmission screen, post-admission physician evaluation and information garnered from therapy assessments. 1. Estimated length of stay probably at least 10-14 days. 2. Medical prognosis is reasonably good. 3. Anticipated interventions includes the interdisciplinary acute inpatient rehabilitation program. 4. Anticipated functional outcomes would be for the patient to become modified independent with transfers, mobility, ADLs and to improve as far as cognition, so that he can hopefully return back to his prior living situation. He does have some left hemisensory deficits. 5. Discharge destination would be back to the home setting where he lives in a house with his and daughter. 6. Expected therapy by discipline includes PT, OT and speech, 1 hour per day [facility] [address] [place] [address] REHAB UNIT PLAN OF CARE Name: JUSTEN STEINER Room #: 506-1 ADM IN M.R.#: [id number] Admission: 10/06/19 Attend Phys: Nick Stock MD Discharge: Date of : 37 Report #: [id number] each five days a week throughout the duration of the acute inpatient rehabilitation program. <ELECTRONICALLY SIGNED> By: Nick Stock MD 10/20/19 0923 0904 1203 Nick Stock MD /JOE
[2019-10-20 11:27] VITALS: BP 118/65
--- NOTE | 2019-10-20 11:37 | NUR ---
ASSUMED CARES AT 0700. PT AWAKE, ALERT AND ORIENTED *3. FORGETFUL. DENIES PAIN AT THIS TIME. VITALS REMAIN STABLE. HEAD INCISION REMAINS DRY AND INTACT. PT CONTINUES TO HAVE BLE EDEMA. PT TO DC TODAY TO HOME WITH HH, PT EDUCATION TO BE COMPLETED WITH PT AND AT THE BEDSIDE PRIOR TO DC. PT UP WITH 1 MIN-SBA GB AND WALKER AND TOLERATED WELL. Q1H VISUAL CHECKS. CALL LIGHT WITHIN REACH. FALL PRECAUTIONS IN PLACE
--- NOTE | 2019-10-20 13:46 | NUR ---
faxed dc orders to aydee tracey , with return confirmation that fax went through.
== END 2019-10-20 12:48 | disposition home health service (06) | DRG 55 ==
PROVIDERS: Nurse Practitioner; Nurse Practitioner Family; ADMIT Physical Medicine & Rehabilitation; ATTEND Physical Medicine & Rehabilitation
DX: C71.9 Malignant neoplasm of brain, unspecified (principal); I69.210 Attention and concentration deficit following other nontraumatic intracranial hemorrhage; H53.452 Other localized visual field defect, left eye; D68.59 Other primary thrombophilia; I10 Essential (primary) hypertension; E03.9 Hypothyroidism, unspecified; M10.9 Gout, unspecified; E11.9 Type 2 diabetes mellitus without complications; G47.33 Obstructive sleep apnea (adult) (pediatric); E78.5 Hyperlipidemia, unspecified; I48.0 Paroxysmal atrial fibrillation; I25.10 Atherosclerotic heart disease of native coronary artery without angina pectoris; E78.00 Pure hypercholesterolemia, unspecified; R41.9 Unspecified symptoms and signs involving cognitive functions and awareness; F32.9 Major depressive disorder, single episode, unspecified; E53.8 Deficiency of other specified B group vitamins; R41.89 Other symptoms and signs involving cognitive functions and awareness; R21 Rash and other nonspecific skin eruption; R00.1 Bradycardia, unspecified; R05 Cough; Z98.42 Cataract extraction status, left eye; Z98.41 Cataract extraction status, right eye; Z82.49 Family history of ischemic heart disease and other diseases of the circulatory system; Z83.3 Family history of diabetes mellitus; Z82.3 Family history of stroke; Z79.899 Other long term (current) drug therapy
CPT/HCPCS: 10112

== ENCOUNTER → 2019-10-23 | Outpatient (CLI) | payer OTHER ==
[~2019-10-23] MED LIST changes: +ALLOPURINOL 10100 M3 PO; +DILTIAZEM 24HR180 M1 PO; +DILTIAZEM 24HR240 M1 PO; +FINASTERIDE5 MG PO; +FISH OIL 1,0001 EAC9 PO; +FLOMAX0.4 MG PO; +HEPARIN 1,1000 UNIT/ SUBQ; +KEPPRA 500 MG500 MG PO; +LEVO-T100 MCG PO; +LIPITOR 20 MG T20 M1 PO; +MIRALAX17 GM PO; +PERCOCET 5-3251 EACH PO; +PRESERVISION A1 EACH PO; +ROBAXIN 750 MG750 MG PO; +SENOKOT-S1 TA2 PO; +VITAMIN D310 MC2 PO
== END ==
LOC: SJCVC 09:51
PROVIDERS: ATTEND Internal Medicine
DX: I48.0 Paroxysmal atrial fibrillation (principal); I49.9 Cardiac arrhythmia, unspecified; I25.10 Atherosclerotic heart disease of native coronary artery without angina pectoris; E78.5 Hyperlipidemia, unspecified; C71.9 Malignant neoplasm of brain, unspecified; I10 Essential (primary) hypertension; Z79.01 Long term (current) use of anticoagulants; Z79.899 Other long term (current) drug therapy